=== PATIENT | male | born 1995 | race Caucasian/White ===

== ENCOUNTER → 2016-06-26 | Outpatient (REF) | payer OTHER ==
[2016-06-26 14:11] LABS: REASON FOR REVIEW COMPREHENSIVE REVIEW
== END ==
LOC: M LAB REF 12:39
PROVIDERS: ATTEND Internal Medicine Medical Oncology
DX: D69.3 Immune thrombocytopenic purpura (principal)

== ENCOUNTER 2016-09-18 12:01 | Outpatient (CLI) | payer OTHER ==
[~2016-09-18] VITALS: Ht 180.3 cm; Wt 91.4 kg
[2016-09-18] VITALS (18 sets, daily range): BP systolic 131–158; BP diastolic 67–92
[2016-09-18] MEDS ORDERED: diphenhydrAMINE INJ 50MG/ML VIAL (J1200) IV ONE (13:00)
[2016-09-18] MEDS ORDERED: ACETAMINOPHEN TAB 650MG DOSE (2X325MG) PO ONE (13:00)
[2016-09-18] MEDS ORDERED: FAMOTIDINE IV BAG 20 MG in APPROPRIATE DILUENT 1 EA IV ONE (13:00)
[2016-09-18] MEDS ORDERED: IMMUNE GLOBULIN 10% 20GM 200ML 80 GM in APPROPRIATE DILUENT 1 EA IV ONE (13:30)
[2016-09-18] MEDS ORDERED: IMMUNE GLOBULIN 10% 10GM 100ML 10 GM in APPROPRIATE DILUENT 1 EA IV ONE (13:30)
[2016-10-10] MEDS ORDERED: PRED10TA2 PO (07:53)
== END 2016-09-18 23:40 | disposition home or self-care (01) ==
LOC: M OPCLI4PR 12:01 → M MSPAV 12:10 → M OPCLI4PR 23:40
PROVIDERS: ATTEND Internal Medicine Medical Oncology
DX: D69.3 Immune thrombocytopenic purpura (principal)
CPT/HCPCS: 96365; 96366; 96375; J1200; J1569

== ENCOUNTER → 2016-10-01 | Outpatient (CLI) | payer OTHER ==
[~2016-10-01] MED LIST: PRED10TA2 PO
--- NOTE | 2016-10-01 10:08 | REP ---
CT ABDOMEN AND PELVIS WITHOUT CONTRAST: CT abdomen and pelvis performed without IV contrast. Sagittal and coronal reconstruction images are performed. The visualized lung bases are clear. The liver, spleen, adrenals, pancreas and kidneys appear grossly unremarkable. The spleen appears normal in size. The length of the spleen is 11.9 cm. There is no abdominal aortic aneurysm. There is no adenopathy. There is no free air or free fluid. There is no bowel wall thickening. There is no evidence of appendicitis. No pelvic mass is seen. Urinary bladder is mildly distended and grossly unremarkable. IMPRESSION: Negative noncontrast CT abdomen and pelvis. No evidence of splenomegaly. Signed by Harpal Kelly MD 10/01/2016 05:08 P
== END ==
LOC: M RAD 07:53
PROVIDERS: ATTEND Surgery
DX: D69.6 Thrombocytopenia, unspecified (principal)

== ENCOUNTER 2016-10-16 06:53 | Outpatient (CLI) | payer OTHER ==
[2016-10-16] MEDS ORDERED: ACETAMINOPHEN TAB 650MG DOSE (2X325MG) PO ONE (07:15)
[2016-10-16] MEDS ORDERED: FAMOTIDINE IV BAG 20 MG in APPROPRIATE DILUENT 1 EA IV ONE (07:15)
[2016-10-16] MEDS ORDERED: IMMUNE GLOBULIN 10% 10GM 100ML 10 GM in APPROPRIATE DILUENT 1 EA IV ONE (07:15)
[2016-10-16] MEDS ORDERED: diphenhydrAMINE INJ 50MG/ML VIAL (J1200) IV ONE (07:15)
[2016-10-16] MEDS ORDERED: IMMUNE GLOBULIN 10% 20GM 200ML 80 GM in APPROPRIATE DILUENT 1 EA IV ONE (07:15)
== END 2016-10-16 14:55 | disposition home or self-care (01) ==
LOC: M INFU 06:53
PROVIDERS: ATTEND Internal Medicine Medical Oncology
DX: D69.3 Immune thrombocytopenic purpura (principal); Z88.1 Allergy status to other antibiotic agents; Z79.51 Long term (current) use of inhaled steroids
CPT/HCPCS: 96365; 96366; 96367; J1200; J1569

== ENCOUNTER 2016-10-17 05:57 | Inpatient (IN) | payer OTHER ==
[~2016-10-17] VITALS: Ht 180.3 cm; Wt 95.0 kg
[2016-10-17] VITALS (7 sets, daily range): BP systolic 133–162; BP diastolic 70–89
[2016-10-17] MEDS ORDERED: LR 1,000 ML IV SCH ×2 (06:15→12:45)
[2016-10-17] MEDS ORDERED: BUPIVACAINE HCL 0.25% 30 ML VIAL As Ordered ONE (07:16)
[2016-10-17] MEDS ORDERED: PROPOFOL 200 MG/20 ML VIAL As Ordered ONE ×2 (07:18→12:27)
[2016-10-17] MEDS ORDERED: ROCURONIUM BROMIDE 50 MG/5 ML VIAL/SYRINGE As Ordered ONE ×2 (07:18→10:17)
[2016-10-17] MEDS ORDERED: LIDOCAINE 2% INJ 100 MG/5 ML SDV (FOR ANES.) As Ordered ONE (07:18)
[2016-10-17] MEDS ORDERED: dexameTHASONE 4 MG/ML 1ML VIAL (J1100) As Ordered ONE (07:18)
[2016-10-17] MEDS ORDERED: fentaNYL 250 MCG/5 ML INJECTION (J3010) As Ordered ONE ×2 (07:19→10:22)
[2016-10-17] MEDS ORDERED: MIDAZOLAM INJ 2 MG/2 ML VIAL (J2250) As Ordered ONE (07:20)
[2016-10-17 07:43] LABS: MEAN CORPUSCULAR HEMOGLOBIN 32.6 pg (27.0-33.0); MEAN CORPUSCULAR HGB CONC 36.4 g/dl (32.0-36.5); MEAN CORPUSCULAR VOLUME 89.6 fl (80.0-96.0); WHITE BLOOD COUNT 5.7 K/mm3 (4.0-10.0)
[2016-10-17] MEDS ORDERED: ESMOLOL INJ 100MG/10ML VIAL As Ordered ONE (09:36)
[2016-10-17] MEDS ORDERED: HYDROCORTISONE 100 MG/2 ML VIAL (J1720) As Ordered ONE (10:05)
[2016-10-17] MEDS ORDERED: HYDROmorphone HCL 2 MG/ML 1ML VIAL (J1170) As Ordered ONE (10:17)
[2016-10-17] MEDS ORDERED: NEOSTIGMINE 1MG/ML 5 ML SYRINGE (J2710) As Ordered ONE (10:34)
[2016-10-17] MEDS ORDERED: GLYCOPYRROLATE INJ 0.2 MG/ML 2 ML VIAL As Ordered ONE (10:34)
[2016-10-17] MEDS ORDERED: ONDANSETRON 4MG/2ML VIAL (J2405) As Ordered ONE (10:34)
[2016-10-17] MEDS ORDERED: LABETALOL HCL 100 MG/20 ML VIAL As Ordered ONE (11:03)
[2016-10-17] MEDS ORDERED: NORCO, ANEXSIA 5/325MG TABLET (HYDROcodone/ACETAMINOPHEN) PO PRN (12:15)
[2016-10-17] MEDS ORDERED: METOCLOPRAMIDE INJ 10MG/2ML VIAL (J2765) IV PRN ×2 (12:15→12:45)
[2016-10-17] MEDS ORDERED: ONDANSETRON 4MG/2ML VIAL (J2405) IV PRN ×2 (12:15→12:45)
[2016-10-17] MEDS ORDERED: ACETAMINOPHEN TAB 650MG DOSE (2X325MG) PO PRN (12:15)
[2016-10-17] MEDS ORDERED: MORPHINE 2 MG/ML 1ML SYRINGE IV PRN (12:15)
[2016-10-17] MEDS ORDERED: PERCOCET 5MG/325MG TAB PO PRN (12:45)
[2016-10-17] MEDS ORDERED: MEPERIDINE INJ 25 MG/ML VIAL (J2175) IV PRN (12:45)
[2016-10-17] MEDS ORDERED: fentaNYL 100 MCG/2 ML INJECTION (J3010) IV PRN (12:45)
[2016-10-17 13:05] LABS: BASO % 0.1 % (0.0-1.0); EOS % 0.2 % (0.0-3.0); LARGE UNSTAINED CELL # 0.1 K/mm3 (0.0-0.4); LARGE UNSTAINED CELL % 0.4 % (0.0-4.0); LYMPH # 0.8 K/mm3 (1.5-6.5); LYMPH % 6.1 % (24.0-44.0); MEAN CORPUSCULAR HEMOGLOBIN 32.4 pg (27.0-33.0); MEAN CORPUSCULAR VOLUME 90.1 fl (80.0-96.0); MONO # 0.1 K/mm3 (0.0-0.8); MONO % 1.2 % (0.0-5.0); NEUTROPHILS # 11.1 K/mm3 (1.8-7.7); NEUTROPHILS % 92.1 % (36.0-66.0); RED CELL DISTRIBUTION WIDTH 12.9 % (11.5-14.5)
[2016-10-17 13:11] LABS: PLATELET COUNT, AUTOMATED 69 k/mm3 (150-450)
[2016-10-17 13:21] LABS: AMYLASE 51 U/L (25-115); ANION GAP 8 MEQ/L (8-16); BLOOD UREA NITROGEN 13 MG/DL (7-18); CALCIUM LEVEL 8.1 MG/DL (8.5-10.1); CARBON DIOXIDE LEVEL 24 MEQ/L (21-32); CHLORIDE LEVEL 107 MEQ/L (98-107); GLOMERULAR FILTRATION RATE > 60.0 (>60); GLUCOSE, FASTING 129 MG/DL (70-105); SODIUM LEVEL 139 MEQ/L (136-145)
[2016-10-17] MEDS: LR 1,000 ML IV SCH ×2 (14:21→21:12)
[2016-10-17] MEDS: NORCO, ANEXSIA 5/325MG TABLET (HYDROcodone/ACETAMINOPHEN) PO PRN ×2 (15:28→21:11)
--- NOTE | 2016-10-17 20:12 | IPN ---
DATE: 10/17/2016 SUBJECTIVE: The patient is now approximately six hours postoperative from his laparoscopic splenectomy for immune thrombocytopenia. He is on the floor and generally doing well. He reports only some soreness in the upper abdomen, particularly around the larger incision in the left subcostal area. He has had no nausea or vomiting. He is tolerating some clear liquids. His urine output has been good. He has taken only one Browning tablet since surgery. PHYSICAL EXAMINATION: The patient is alert and appears fairly comfortable. Heart and lung exam is unremarkable. The abdomen is mildly protuberant but he has some bowel sounds present. LABORATORY DATA: Postoperative labs showed a white count of 12,000 with a hemoglobin of 15, hematocrit of 42 and his platelet count was 69,000, as opposed to 54,000 preoperatively. A basic medical profile showed his fasting glucose 129 which is likely related to his additional steroids given for the surgery. His amylase was only 51. IMPRESSION: Excellent postoperative result to this point. PLAN: The patient will be allowed to advance his diet tomorrow morning if he tolerates the liquids well. We will recheck his blood count in the morning to assess any changes in his platelet count. I would anticipate he would be ready for discharge from the hospital within the next several days. RUSS
[2016-10-17] MEDS: DOCUSATE SODIUM 100 MG CAP PO SCH (21:10)
[2016-10-18 06:00] VITALS: BP 142/78
[2016-10-18 07:14] LABS: BASO % 0.1 % (0.0-1.0); EOS % 0.1 % (0.0-3.0); LARGE UNSTAINED CELL # 0.1 K/mm3 (0.0-0.4); LYMPH # 1.4 K/mm3 (1.5-6.5); LYMPH % 8.8 % (24.0-44.0); MEAN CORPUSCULAR HEMOGLOBIN 32.2 pg (27.0-33.0); MEAN CORPUSCULAR VOLUME 89.4 fl (80.0-96.0); MONO # 1.1 K/mm3 (0.0-0.8); MONO % 8.1 % (0.0-5.0); NEUTROPHILS # 11.3 K/mm3 (1.8-7.7); NEUTROPHILS % 81.9 % (36.0-66.0); PLATELET COUNT, AUTOMATED 126 k/mm3 (150-450); RED CELL DISTRIBUTION WIDTH 12.7 % (11.5-14.5); WHITE BLOOD COUNT 13.8 K/mm3 (4.0-10.0)
[2016-10-18] MEDS: predniSONE 10 MG TAB PO SCH (08:24)
[2016-10-18] MEDS: DOCUSATE SODIUM 100 MG CAP PO SCH ×2 (08:24→21:29)
[2016-10-18] MEDS: NORCO, ANEXSIA 5/325MG TABLET (HYDROcodone/ACETAMINOPHEN) PO PRN ×3 (08:24→16:58)
[2016-10-18] MEDS: LR 1,000 ML IV SCH (09:52)
[2016-10-18 14:00] VITALS: BP 163/77
--- NOTE | 2016-10-18 14:33 | HPE ---
DATE OF ADMISSION: 10/17/2016 This dictation is being dictated day late because the dictation system was down on October 16 and October 17. ADMISSION DIAGNOSIS: Immune thrombocytopenia. HISTORY OF PRESENT ILLNESS: The patient is a very pleasant 21-year-old man who noticed some petechiae approximately 6 months earlier. He was evaluated at a medical clinic in [facility] and was found to have a very low platelet count. He was initially started on IV immunoglobulin and was treated with steroids. His platelet count improved but his count has remained generally quite low. His evaluation has continued and a diagnosis of immune thrombocytopenia was made. His platelet count has frequently been noted down to 30,000 or so. He has remained on 10 mg of prednisone daily. He had been evaluated by Dr. Carrion of Hematology/Oncology and referred for consideration of a splenectomy. The patient underwent an evaluation with a CT scan of the abdomen and pelvis preoperatively. His spleen is not enlarged and there were no definite accessory spleens identified. The patient has had no prior abdominal surgery and he is now being admitted on 10/17/2016 for a laparoscopic splenectomy. He did receive IV immunoglobulin on the morning of October 16 to try to boost his platelet count. He has received immunizations for pneumococcus and meningococcus while under the care of Dr. Carrion. He is now admitted for surgery. ALLERGIES: The patient has an allergy to a AZITHROMYCIN. His only medication is prednisone 10 mg by mouth daily. PAST SURGICAL HISTORY: Negative. PAST MEDICAL HISTORY: Entirely unremarkable other than his immune thrombocytopenia. SOCIAL HISTORY: He is a nonsmoker and occasionally has an alcoholic beverage. FAMILY HISTORY: Negative. REVIEW OF SYSTEMS: Shows no history of seizure or stroke. He denies chest pain or palpitations, shortness of breath or wheezing. He denies any rectal bleeding , change in bowel habits, diarrhea or constipation. He has had no dysphasia or heartburn. He denies any history of jaundice or pancreatitis. He denies any dysuria or hematuria. He has developed some striae related to his steroid treatments. He has no history of deep venous thrombosis (DVT) or pulmonary embolus. PHYSICAL EXAMINATION: Physical exam reveals a pleasant young man in no acute distress. His height is 71 inches with a weight of approximately 92 kg giving him a body mass index ( BMI) of 28. He is alert, oriented and cooperative. Sclerae are anicteric. Mucous membranes are moist. Neck is supple without mass. Heart exam shows a regular rate and rhythm. The lungs are clear to auscultation. The abdomen is perhaps mildly obese. The abdomen is soft and nontender without appreciable mass. There is no evident hernia. Extremities: Show intact radial and pedal pulses. IMPRESSION: Immune thrombocytopenia, persistent. PLAN: The patient is now admitted to undergo a laparoscopic splenectomy. He received intravenous immune globulin on the morning of 10/16/2016 in hopes that this would boost his platelet count preoperatively. We will check a CBC before the surgery to ensure that his platelet count is adequate. I will also ensure that there are platelets available in the blood bank to administer if necessary. The patient was counseled for the procedure of laparoscopic splenectomy to include the risk that we would need to convert this to an open procedure. He had an opportunity to ask questions. He desires to proceed. RUSS
[2016-10-18 22:00] VITALS: BP 165/80
[2016-10-19 06:00] VITALS: BP 161/83
--- NOTE | 2016-10-19 06:45 | RO ---
DATE OF PROCEDURE: 10/17/2016 PREOPERATIVE DIAGNOSIS: Immune thrombocytopenia. POSTOPERATIVE DIAGNOSIS: Immune thrombocytopenia. PROCEDURE PERFORMED: Laparoscopic splenectomy. SURGEON: Marco A Flores MD FLEXOGRAPHIC PRINTING MACHINIST: Harpal Morris DO ANESTHESIA: General. INDICATIONS FOR PROCEDURE: Patient is a 21-year-old man who has been diagnosed with immune thrombocytopenia. He was treated initially with intravenous immunoglobulin and steroids. He has continued with a low platelet count though he has not had obvious signs of bleeding. He was referred for a splenectomy. He is now scheduled for a laparoscopic splenectomy. OPERATIVE PROCEDURE: The patient was placed supine on the operating table and placed under general endotracheal anesthesia. Using a cheng bag, he was then rotated into a partial right lateral decubitus position at about 45 degrees relative to the table. The left arm was supported on an elevated arm board above the chest. His pressure points were padded. The lower extremities were padded with foam and pillows. A Constantino catheter had been inserted prior to positioning. Thromboembolic deterrent stockings (TEDS) and sequentials were utilized. The patient's abdomen was then prepped and draped in a sterile fashion. 0.25% Marcaine was infiltrated at each of the trocar sites. Initial entry was in the left upper quadrant several centimeters above and lateral to the umbilicus. A Veress needle was inserted and after a positive hanging drop test the abdomen was insufflated with carbon dioxide. A 5 mm port was placed over a 5 mm 30 degree scope and advanced through the abdominal wall without difficulty. Initial examination showed the spleen nicely in the left upper quadrant. There was abundant fibrofatty tissue just inferior and medial to the spleen. A 5 mm trocar was placed in the medial aspect of the left subcostal area. A 12 mm trocar was placed approximately at the level of the midclavicular line in the left subcostal region. Graspers were inserted. Initial inspection identified a very small accessory spleen in the splenocolic ligament area just inferior to the tip of the spleen. Initial dissection was performed to divide the splenocolic attachments and to free the splenic flexure of the colon. The patient was tilted to a reverse Trendelenburg position to enhance gravity's effect to move the small and large bowel inferiorly in the abdomen. A few filmy attachments to the inferior pole of the spleen were divided using the harmonic scalpel. There was one slightly vascular appearing attachment that was also divided and following this it was noted that the inferior tip of the spleen became quite dusky. A few filmy attachments around the medial aspect of the inferior pole the spleen were divided moving up toward the hilar region. Attention was then turned to the gastrosplenic tissues. A fourth trocar, which was 5 mm, was placed in the far lateral aspect of the subcostal area to allow another retractor to help elevate the spleen. The stomach was grasped and elevated and dissection was carried up along the greater curve of the stomach dividing the short gastric vessels carefully using the harmonic scalpel all the way up to the area of cardia. The fibrofatty tissues were then dissected from the area of the splenic hilum to gain exposure of the hilar vessels. Working from inferior to superior along the medial aspect of the spleen, a moderately large vein and artery were identified at the inferior aspect of the hilum. These were dissected together and I attempted placement of a linear cutter 45 stapler across this area, but did not have a good angle to allow placement. The identified vein and artery were then dissected separately and each was quadruply clipped and divided between the middle two clips. Dissection then proceeded further superiorly along the medial aspect of the spleen. Another vein was identified as was another large artery toward the superior aspect of the hilum. The artery was clipped and divided. The vein was then clipped and divided. At this point, the entire spleen was quite dusky in coloration. Further dissection revealed no other significant vessels. The remaining fibrofatty tissues of the hilum were divided and then the posterior attachments of the spleen were divided and the spleen was thus completely freed. The small accessory spleen that had previously been identified was then dissected free as well. A 15 cm specimen pouch was inserted through the 12 mm trocar and the entire spleen and the small accessory spleen were placed within the pouch. The neck of the pouch was then delivered through the 12 mm port site. The incision was opened to perhaps 2 cm. The muscle fascia was opened as well and the opening dilated somewhat. Using a ring clamp, the spleen was morselized and removed through the neck of the pouch with care not to puncture the pouch. Once the spleen had been completely removed, the pouch was removed from the opening. The surgical team changed gloves. The peritoneum and fascia at the 12 mm trocar site was then closed with #2-0 Vicryl. The abdomen was reinflated. Inspection showed a minimal amount of residual blood up in the left upper quadrant and this was irrigated. Careful inspection showed no evidence of any further bleeding. The portions of the greater omentum in the left upper quadrant fell readily into the space where the spleen had been. The patient was returned to a flat position. The abdomen was deflated and the trocars were all removed. The skin incisions were all closed with buried #4-0 Vicryl and Steri-Strips. Light dressings were applied. The patient tolerated the procedure very well without apparent complication. He was awakened in the operating room, extubated and moved to the recovery room in stable condition. His Constantino catheter was removed prior to awakening. RUSS
[2016-10-19 07:10] LABS: MEAN CORPUSCULAR HEMOGLOBIN 33.2 pg (27.0-33.0); MEAN CORPUSCULAR HGB CONC 35.9 g/dl (32.0-36.5); MEAN CORPUSCULAR VOLUME 92.5 fl (80.0-96.0); RED CELL DISTRIBUTION WIDTH 12.9 % (11.5-14.5); WHITE BLOOD COUNT 8.2 K/mm3 (4.0-10.0)
[2016-10-19 07:20] LABS: ANION GAP 8 MEQ/L (8-16); BLOOD UREA NITROGEN 8 MG/DL (7-18); CALCIUM LEVEL 8.1 MG/DL (8.5-10.1); CARBON DIOXIDE LEVEL 27 MEQ/L (21-32); CHLORIDE LEVEL 110 MEQ/L (98-107); CREATININE FOR GFR 0.98 MG/DL (0.70-1.30); GLOMERULAR FILTRATION RATE > 60.0 (>60); GLUCOSE, FASTING 84 MG/DL (70-105); POTASSIUM SERUM 3.4 MEQ/L (3.5-5.1); SODIUM LEVEL 145 MEQ/L (136-145)
[2016-10-19] MEDS: predniSONE 10 MG TAB PO SCH (09:28)
[2016-10-19] MEDS: DOCUSATE SODIUM 100 MG CAP PO SCH (09:28)
--- NOTE | 2016-10-21 17:00 | DSES ---
DATE OF ADMISSION: 10/17/2016 DATE OF DISCHARGE: 10/19/2016 ADMITTING DIAGNOSIS: Immune thrombocytopenia. HISTORY OF PRESENT ILLNESS: The patient is a 21-year-old man who presented approximately 6 months ago with some petechiae and was found to have a low platelet count. His workup led to a diagnosis of immune thrombocytopenia. He was treated with steroids and IV immunoglobulin initially. His platelet counts have remained low despite continuing steroids at prednisone 10 mg by mouth daily. He is now for a splenectomy. HOSPITAL COURSE: The patient was admitted on 10/17/2016. His platelet count preoperatively was 54,000. He underwent a laparoscopic splenectomy without difficulty. His immediate postoperative platelet count was 69,000 and he had no evidence of any bleeding. His postoperative course was unremarkable. His platelet count on postoperative day #2 was 187,000. His pathology report revealed benign splenic tissue. He was discharged on postoperative day #2. FINAL DIAGNOSIS: 1. Immune thrombocytopenia. PROCEDURE PERFORMED: laparoscopic splenectomy. DISPOSITION: He was discharged home in good condition on 10/19/2016. He was advised that it was alright to shower. He could take a regular diet. His activity was as tolerated. He was advised against any lifting more than 20 pounds or strenuous activity. He was to continue his prednisone 10 mg by mouth daily. He has a followup appointment scheduled with Dr. Carrion of Hematology/Oncology. He should followup with Dr. Flores in the office in 2 weeks. RUSS
== END 2016-10-19 11:00 | disposition home or self-care (01) | DRG 801 ==
LOC: M OR 05:57 → M MS5PR 13:50
PROVIDERS: ADMIT Surgery; ATTEND Surgery
PROC: 07TP4ZZ Resection of Spleen, Percutaneous Endoscopic Approach (ICD-10-PCS; principal; 2016-10-17 07:30)
DX: D69.6 Thrombocytopenia, unspecified (principal); Z79.52 Long term (current) use of systemic steroids; Z88.1 Allergy status to other antibiotic agents